=== PATIENT | female | born 1930 | race Caucasian/White ===

== ENCOUNTER 2017-04-22 10:06 | Inpatient (IN) | payer MEDICARE ==
[2017-04-22 10:56] LABS: HEMATOCRIT 38.2 % (35.0-47.0); HEMOGLOBIN 12.4 gm/dl (11.6-16.0); MEAN CORPUSCULAR HEMOGLOBIN 32.1 pg (27-33); MEAN CORPUSCULAR HGB CONC 32.5 g/dl (32-36); MEAN PLATELET VOLUME 10.3 fl (7.4-10.4); PLATELET COUNT 310 K/uL (130-400); RED BLOOD COUNT 3.86 M/uL (3.80-5.40); RED CELL DISTRIBUTION WIDTH 14.2 % (11.5-14.5); WHITE BLOOD COUNT W/O DIFF 11.5 K/uL (4.2-12.2)
[2017-04-22 11:06] LABS: PLATELET ESTIMATE NORMAL (NORMAL)
[2017-04-22 11:28] LABS: BILIRUBIN,TOTAL 0.7 mg/dL (0.2-1.0)
[2017-04-22 11:29] LABS: TOTAL PROTEIN 8.1 g/dL (6.6-8.7)
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
[2017-04-22 11:34] LABS: ALB/GLOB RATIO 1.1 (1.1-1.8); ALBUMIN 4.3 g/dL (4.0-5.0)
[2017-04-22 11:36] LABS: CKMB 8.7 ng/mL (<3.77)
[2017-04-22 11:47] LABS: CKMB RELATIVE INDEX 3.4 % (0-4)
[2017-04-22] MEDS ORDERED: 0.9% SODIUM CHLORIDE 250ML BAG IV ONE (11:55)
[2017-04-22] MEDS ORDERED: ACETAMINOPHEN 325 MG TAB PO ONE (13:31)
[2017-04-22] MEDS ORDERED: ASPIRIN 81 MG CHEWABLE TABLET PO ONE (13:47)
[2017-04-22] MEDS ORDERED: ACETAMINOPHEN 500 MG TABLET PO PRN (14:04)
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
--- NOTE | 2017-04-22 14:36 | RADIOLOGY REPORT ---
EXAM: RIGHT SHOULDER, THREE VIEWS HISTORY: FALL, RIGHT SHOULDER INJURY AND PAIN. TECHNIQUE: Three views of the right shoulder were obtained. Comparison: None. Encounter: Initial. FINDINGS: Osteopenia. Superior migration the right humeral head nearly contacting the acromion process. Severe osteoarthritic change of the acromioclavicular joint. The glenohumeral joint is preserved. IMPRESSION: 1. NO ACUTE FRACTURE OF THE RIGHT SHOULDER. 2. SUPERIOR MIGRATION OF THE RIGHT HUMERAL HEAD CONSISTENT WITH CHRONIC RIGHT ROTATOR CUFF TEAR AND ATROPHY. 3. SEVERE OSTEOARTHRITIC CHANGE RIGHT ACROMIOCLAVICULAR JOINT. JOB NUMBER: [id number] MTDD
--- NOTE | 2017-04-22 14:44 | CT SCAN REPORT ---
EXAM: CERVICAL SPINE CT WITH TWO DIMENSIONAL REFORMATS HISTORY: SYNCOPE, FALL, STRUCK POSTERIOR HEAD RIGHT ZYGOMATIC ARCH REGION. TECHNIQUE: Contiguous axial images from the skull base to the T2 level were obtained without contrast. Sagittal and coronal two dimensional reformatted images were obtained for better anatomic delineation. Comparison: None. Encounter: Initial. FINDINGS: Anatomic alignment of the cervical spine. The C1-C2 articulation appears appropriate and the odontoid is intact. Severe degenerative disk disease at C6-C7 manifested by loss of stature as well as end plate osteophytes. Moderate to advanced disk disease at C5-C6. Mild disk disease at the remaining levels. Borderline central canal stenosis at C5-C6 with the thecal sac measuring approximately 10 mm at this level. There is moderate to severe right neural foraminal stenosis at C4-C5 due to facet and uncovertebral joint hypertrophy as well as severe bilateral neural foraminal stenosis at C5- C6. Moderate to severe neural foraminal stenosis at C6-C7. The soft tissues of the cervical region demonstrates dense calcification of the carotid bulbs. The lung apices are clear. IMPRESSION: 1. NO ACUTE FRACTURE OR SUBLUXATION OF THE CERVICAL SPINE. 2. MULTILEVEL DEGENERATIVE DISK DISEASE MOST PRONOUNCED AT C6-C7. 3. VARYING DEGREES OF NEURAL FORAMINAL STENOSIS ABOVE. 4. SEVERE CALCIFICATION OF THE CAROTID BULBS. JOB NUMBER: [id number] [facility]
--- NOTE | 2017-04-22 14:47 | RADIOLOGY REPORT ---
EXAM: CHEST, TWO VIEWS HISTORY: FALL, ELEVATED TROPONIN. TECHNIQUE: Two views of the chest were obtained. Comparison: Chest x-ray 11/08/08. Encounter: Initial. FINDINGS: The lungs are clear. The cardiac silhouette is mildly prominent. The diaphragm is unremarkable. Osteopenia. Superior migration of the right humeral head. No displaced rib fracture. The vertebral body stature is preserved. IMPRESSION: CARDIOMEGALY. NO ACUTE INTRATHORACIC PROCESS. JOB NUMBER: [id number] MTDD
[2017-04-22 15:57] LABS: CKMB 8.9 ng/mL (<3.77)
[2017-04-22] MEDS ORDERED: CLONIDINE HCL 0.1 MG TABLET PO SCH (16:00)
[2017-04-22] MEDS ORDERED: GLIPIZIDE 5 MG TABLET PO SCH (16:30)
[2017-04-22] MEDS ORDERED: SIMVASTATIN 20 MG TABLET PO SCH (22:00)
[2017-04-22] MEDS ORDERED: METOPROLOL TART 50 MG TABLET PO SCH (22:00)
[2017-04-22] MEDS ORDERED: METFORMIN 500 MG TABLET PO SCH (22:00)
[2017-04-23] MEDS ORDERED: HYDROCHLOROTHIAZIDE 25 MG TABLET PO SCH (10:00)
[2017-04-23] MEDS ORDERED: LISINOPRIL 20 MG TABLET PO SCH (10:00)
[2017-04-23] MEDS ORDERED: ASPIRIN 325 MG TAB ENTERIC-COATED PO SCH (10:00)
[2017-04-23] MEDS ORDERED: ALLOPURINOL 100 MG TAB PO SCH (10:00)
--- NOTE | 2017-04-23 12:31 | Discharge Summary ---
DATE: 04/22/2017 DISCHARGE DIAGNOSES: 1. Syncope. 2. Non-ST elevation myocardial infarction. 3. Elevated troponin T. 4. Abnormal echocardiogram. 5. Contusion of the face, right shoulder, and right chest. 6. Previous problem with the right shoulder where she got a flu shot about 2 months ago and she had a large bruise on the shoulder and had difficulty raising her arm over her shoulder. That seems to have resolved but this new bruise is from falling today on the right shoulder. The x-ray of her right shoulder showed degenerative changes of rotator cuff injuries to the right shoulder, which looks like a chronic problem that is maybe just surfacing. 7. Status post diabetes mellitus type 2. 8. Status post hypercholesterolemia. 9. Status post hypertension. 10. Status post gout. 11. 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 12. Osteoporosis. ATTENDING PHYSICIAN: Miguelangel Davis DO REASON FOR HOSPITALIZATION: The patient had a syncopal episode, fell down. Does not remember the event. Evaluated after EMS transport to the hospital by Dr. Willingham. Admitted to the hospital for syncope, non-ST elevated [place]. Consult with Dr. Ivan March for serial cardiac enzymes and an echocardiogram. THERAPY PROVIDED: Cardiac monitoring. HOSPITAL COURSE: The patient has been stable throughout. Denies any chest pain. Echocardiogram, though, reveals an ejection fraction of 45% with wall motion abnormality that is very significant according to Dr. Ivan March which warrants a heart catheterization. Cardiac enzymes and troponin T were elevated at 2 time spots. CONDITION ON DISCHARGE: Transferred to [facility]. DISCHARGE INSTRUCTIONS: Transferred to [facility] for Dr. Ivan March to do a heart catheterization. Will be transferred to the service medicine Dr. Mercado. [place]
--- NOTE | 2017-04-23 12:31 | History and Physical Report ---
DATE: 04/22/2017 CHIEF COMPLAINT: Syncope. HISTORY OF PRESENT ILLNESS: This 86-year-old female got up this morning about 5:30 a.m. She collapsed on the floor. She does not remember the fall or any part of the event. She woke up about an hour later. She tried to get up and had a difficult time getting up. She was on the floor for about 5 hours. Finally got through to a family member. They brought her into the emergency department for evaluation. She was evaluated by Dr. Willingham, had x-rays done. CT of the head and neck which were negative for fractures. Right shoulder x-ray and chest x-ray were negative for fractures. EKG showing no acute changes but her troponin T was elevated to 0.45 and the next one went up even a little higher. Dr. Ivan March was contacted, the clinical interviewer. She was placed in the hospital for observation and further evaluation. PAST MEDICAL HISTORY: Diabetes mellitus type 2, hypercholesterolemia, hypertension, macular degeneration of both eyes. PAST SURGICAL HISTORY: Appendectomy, cholecystectomy, cataracts bilaterally. MEDICATIONS: 1. Lopressor 100 mg b.i.d. 2. Clonidine 0.3 mg t.i.d. 3. Glipizide 5 mg b.i.d. 4. Metformin 1000 mg b.i.d. 5. Allopurinol 300 mg daily. 6. Hydrochlorothiazide 25 mg daily. 7. Lisinopril 40 mg daily. 8. Simvastatin 40 mg daily. 9. Fish oil 1000 mg 2 times a day. 10. Calcium with vitamin D 1 tablet b.i.d. 11. Multiple vitamins 1 a day. ALLERGIES: VIOXX, CLINDAMYCIN causes itching, PENICILLIN caused a rash, SULFA caused a rash. SOCIAL HISTORY: She never smoked. No alcohol or drug use. FAMILY HISTORY: Unremarkable. May have had some cardiac disease in her family. REVIEW OF SYSTEMS: HEENT: No upper respiratory infection symptoms, cough, cold, or congestion. She has bruising on the right side of her face. Cardiovascular: No chest pain, palpitations, or arrhythmia. Respiratory: No cough, cold, or congestion. Gastrointestinal: No nausea, vomiting, diarrhea, black stools, or bloody stools. She is a little distended in her abdomen. Genitourinary: No dysuria, hematuria, frequency, or burning on urination. Musculoskeletal: No joint or bone abnormalities. Neurological: No CVA, paralysis, or paresthesias. Endocrine: She does have diabetes mellitus but no hypothyroidism. Integument: No rash, ulcers, change in moles, or yellow skin. On her abdomen, she is slightly bloated. She says that comes and goes at times. PHYSICAL EXAMINATION: VITALS: Height 5 feet 2 inches, weight 156 pounds. Temperature 98.2, pulse 86, blood pressure 158/74, respiratory rate 618, pulse ox 96% on room air. HEENT: Pupils are equal, round, and reactive to light and accommodation. Extraocular muscles are intact. Throat is clear. Nose is clear. Tympanic membranes are reno. NECK: Supple. No jugular venous distention. No hepatojugular reflux. No carotid bruits. Thyroid is smooth. CARDIOVASCULAR: Regular rate and rhythm without murmurs, clicks, rubs, or gallops. RESPIRATORY: Clear to auscultation and percussion. ABDOMEN: Soft, nontender. No hepatosplenomegaly, no masses, no tenderness. Bowel sounds are active. She is slightly bloated. She has had 4 children. EXTREMITIES: No pitting edema. No cyanosis, no clubbing. Full range of motion. Peripheral pulses are good. BREASTS: Deferred. GYNECOLOGICAL: Deferred. RECTAL: Deferred. NEUROLOGIC: Cranial nerves II-XII intact. No gross defects. Sensation normal, strength normal. Deep tendon reflexes equal bilaterally with Babinski negative. MENTAL STATUS: Alert and oriented x3. IMPRESSION: 1. Syncope. 2. Elevated troponin T. 3. Contusion of the face, right shoulder, and chest. 4. Non-ST elevation myocardial infarction. 5. Status post diabetes mellitus type 2. 6. Status post hypertension. 7. Status post hypercholesterolemia. PLAN: Cardiology consult with Dr. Ivan March. [place]
== END 2017-04-22 19:05 | disposition short-term general hospital (02) | DRG 282 ==
LOC: ER 10:06 → MEDSURG 13:49
PROVIDERS: ADMIT Emergency Medicine; ATTEND Emergency Medicine
DX: S09.90XA Unspecified injury of head, initial encounter (principal); I21.4 Non-ST elevation (NSTEMI) myocardial infarction; T14.8XXA Other injury of unspecified body region, initial encounter; S00.11XA Contusion of right eyelid and periocular area, initial encounter; S00.83XA Contusion of other part of head, initial encounter; W18.30XA Fall on same level, unspecified, initial encounter; Y93.89 Activity, other specified; Y92.009 Unspecified place in unspecified non-institutional (private) residence as the place of occurrence of the external cause; S40.011A Contusion of right shoulder, initial encounter; S20.211A Contusion of right front wall of thorax, initial encounter; E11.9 Type 2 diabetes mellitus without complications; E78.00 Pure hypercholesterolemia, unspecified; M10.9 Gout, unspecified; H35.30 Unspecified macular degeneration; M81.0 Age-related osteoporosis without current pathological fracture; R55 Syncope and collapse; Z79.84 Long term (current) use of oral hypoglycemic drugs; I10 Essential (primary) hypertension
CPT/HCPCS: 36416; 70450; 71020; 72125; 80053; 82550; 82553; 82948; 84484; 85027; 93005; 93010; 93041; 99285